=== PATIENT | female | born 1945 | race Caucasian/White ===

== ENCOUNTER → 2016-06-05 | Outpatient (REF) ==
[~2016-06-05] MED LIST: ALDACTONE50 MG PO; CALCIUM CITRATE1 TA1 PO; CLARITIN REDITA10 MG PO; COMBIVENT INH14.7 GM IH; FOSAMAX 70MG TA70 MG PO; GLUCOPHAGE1000 MG PO; GLUCOSAMINE & C1 CA1 PO; LIDODERM PATCH TP; MICARDIS20 MG PO; MICARDIS40 MG PO; MULTIPLE VITAMI1 CAP PO; NASACORT AQ N16.5 GM NS; NIZORAL SHAMPO120 M1 TP; OMEGA-3 FISH1200 MG PO; PREGNENOLONE; PREGNENOLONE PO; PRIL40 PO; PROBIOTIC FORMU1 CAP PO; SYNTHROID0.05 MG/TA PO; TOBRADEX EYE O3.5 GM OP; TYLENOL EXTRA500 M1 PO; VYTORIN 10 MG-21 TAB PO; XOPENEX 0.0.63 MG/3 IH; ZYRTEC 10MG10 MG PO
[2016-06-05 12:47] LABS: THYROID STIMULATING HORMONE 2.21 uIU/mL (0.465-4.680)
== END ==
LOC: ZLAB.WCH 11:24
PROVIDERS: Family Medicine
DX: Z01.89 Encounter for other specified special examinations (principal)

== ENCOUNTER → 2016-12-01 | Outpatient (REF) | LOC: ZLAB.WCH 18:00 | DX: Z01.89 Encounter for other specified special examinations (principal) ==

== ENCOUNTER → 2017-01-19 | Outpatient (CLI) | payer MEDICARE, OTHER | LOC: COL.RAD 07:01 | DX: K21.0 Gastro-esophageal reflux disease with esophagitis (principal); K63.89 Other specified diseases of intestine | CPT/HCPCS: A9541 ==

== ENCOUNTER 2017-04-20 10:30 | Outpatient (RCR) | payer MEDICARE, OTHER | END 2017-06-14 | disposition still patient (30) | LOC: WSST | DX: R49.0 Dysphonia (principal); J38.3 Other diseases of vocal cords | CPT/HCPCS: G9171-GN; G9172-GN ==

== ENCOUNTER → 2017-06-04 | Outpatient (REF) ==
[2017-06-04 16:34] LABS: THYROID STIMULATING HORMONE 1.88 uIU/mL (0.465-4.680)
== END ==
LOC: ZLAB.WCH 15:40
PROVIDERS: Family Medicine
DX: Z01.89 Encounter for other specified special examinations (principal)

== ENCOUNTER → 2017-12-22 | Outpatient (REF) | LOC: ZLAB.WCH 18:07 | DX: Z01.89 Encounter for other specified special examinations (principal) ==

== ENCOUNTER 2019-10-23 09:01 | Day surgery (SDC) | payer MEDICARE, OTHER ==
[~2019-10-23] VITALS: Ht 165.1 cm; Wt 82.0 kg
[2019-10-23] MEDS ORDERED: PRIL40 PO (09:35)
[2019-10-23] MEDS ORDERED: ALDACTONE 25MG25 M1 PO (09:36)
[2019-10-23] MEDS ORDERED: MICARDIS80 MG PO (09:36)
[2019-10-23] MEDS ORDERED: GLUCOPHAGE500 MG/TAB PO (09:36)
[2019-10-23] MEDS ORDERED: SYNTHROID0.05 MG/TA PO (09:37)
[2019-10-23] MEDS ORDERED: CALCIUM 600MG+D1 TAB PO (09:37)
[2019-10-23] MEDS ORDERED: DETROL LA 2 MG2 MG PO (09:38)
[2019-10-23] MEDS ORDERED: LIPITOR 10MG10 MG PO (09:38)
[2019-10-23] MEDS ORDERED: ALLEGRA 180MG180 MG PO (09:38)
[2019-10-23] MEDS ORDERED: CEROVITE SENIOR1 TA1 PO (09:39)
[2019-10-23] MEDS ORDERED: COMBIRESP IH (09:39)
[2019-10-23] MEDS ORDERED: ENSURE 237 ML237 ML PO (09:40)
[2019-10-23] MEDS ORDERED: PROBIOTIC FORMU1 CAP PO (09:40)
[2019-10-23] MEDS ORDERED: FIBERCON PO (09:40)
[2019-10-23] MEDS ORDERED: VITAMIN B122500 MCG SL (09:40)
[2019-10-23] MEDS ORDERED: DULCOLAX STOOL100 MG PO (09:41)
[2019-10-23] MEDS ORDERED: GLUCOSAMINE & C1 TAB PO (09:41)
[2019-10-23] MEDS ORDERED: AZO-CRANBERRY450 MG PO (09:42)
[2019-10-23] MEDS ORDERED: NASACORT OTC NS (09:42)
[2019-10-23] MEDS ORDERED: CORICIDIN HBP1 EACH PO (09:43)
[2019-10-23] MEDS ORDERED: LASIX 20MG TABL20 MG PO (09:43)
[2019-10-23] MEDS ORDERED: MUCINEX D 12001 TER PO (09:43)
[2019-10-23 09:44] VITALS: BP 136/78; PULSE 90; TEMP 97.2
[2019-10-23] MEDS ORDERED: PAMELOR 10MG10 MG PO (09:44)
[2019-10-23] MEDS ORDERED: XARELTO10 MG PO (09:44)
--- NOTE | 2019-10-23 10:19 | NUR ---
Patient to the procedure at this time with Junie Ayala RN.
[2019-10-23 10:30] VITALS: BP 125/79; PULSE 87
[2019-10-23 10:45] VITALS: BP 131/83; PULSE 69
[2019-10-23 11:10] VITALS: BP 139/81; PULSE 82; TEMP 97
--- NOTE | 2019-10-23 11:10 | NUR ---
Patient arrives back to [facility] alert, denies pain or nausea. Patient ambulates from cart to chair with standby assist and without any complications. Patient monitor applied, vitals stable. Patient's spouse at bedside.
--- NOTE | 2019-10-23 11:30 | NUR ---
Dr Montoya into see patient at this time to go over procedure results.
--- NOTE | 2019-10-23 11:40 | NUR ---
Patient tolerates juice and crackers without any nausea.
--- NOTE | 2019-10-23 11:55 | NUR ---
Dismissal instructions gone over with patient and patient's spouse. Both verbalize understanding and all questions answered.
--- NOTE | 2019-10-23 12:00 | NUR ---
Patient up to restroom at this time with wheelwalker and without any complications.
--- NOTE | 2019-10-23 12:05 | NUR ---
Patient discharged to private vehicle at patient enterance via wheelchair without any complications. Patient and spouse leave thanking staff for services.
== END 2019-10-23 12:05 | disposition home or self-care (01) ==
LOC: SDCO 09:01
DX: K22.2 Esophageal obstruction (principal); K21.9 Gastro-esophageal reflux disease without esophagitis; Z88.1 Allergy status to other antibiotic agents; Z88.5 Allergy status to narcotic agent; J45.909 Unspecified asthma, uncomplicated; I10 Essential (primary) hypertension; E66.9 Obesity, unspecified; G47.33 Obstructive sleep apnea (adult) (pediatric); G89.29 Other chronic pain; Z86.73 Personal history of transient ischemic attack (TIA), and cerebral infarction without residual deficits; E11.9 Type 2 diabetes mellitus without complications; Z88.2 Allergy status to sulfonamides; Z79.84 Long term (current) use of oral hypoglycemic drugs; Z90.49 Acquired absence of other specified parts of digestive tract; Z90.710 Acquired absence of both cervix and uterus; Z96.649 Presence of unspecified artificial hip joint; Z20.828 Contact with and (suspected) exposure to other viral communicable diseases
CPT/HCPCS: C1726; J2704; J7030

== ENCOUNTER → 2019-12-15 | Outpatient (CLI) | payer MEDICARE, OTHER ==
[~2019-12-15] MED LIST changes: +ALDACTONE 25MG25 M1 PO; +ALLEGRA 180MG180 MG PO; +AZO-CRANBERRY450 MG PO; +CALCIUM 600MG+D1 TAB PO; +CEROVITE SENIOR1 TA1 PO; +COMBIRESP IH; +CORICIDIN HBP1 EACH PO; +DETROL LA 2 MG2 MG PO; +DULCOLAX STOOL100 MG PO; +ENSURE 237 ML237 ML PO; +FIBERCON PO; +GLUCOPHAGE500 MG/TAB PO; +GLUCOSAMINE & C1 TAB PO; +LASIX 20MG TABL20 MG PO; +LIPITOR 10MG10 MG PO; +MICARDIS80 MG PO; +MUCINEX D 12001 TER PO; +NASACORT OTC NS; +PAMELOR 10MG10 MG PO; +VITAMIN B122500 MCG SL; +XARELTO10 MG PO
== END ==
LOC: ZCOL.LAB 21:44
DX: Z01.89 Encounter for other specified special examinations (principal)

== ENCOUNTER 2022-01-02 14:18 | Day surgery (SDC) | payer MEDICARE, OTHER ==
[~2022-01-02] VITALS: Ht 165.1 cm; Wt 81.1 kg
[2022-01-02 15:46] VITALS: BP 174/79; PULSE 83; TEMP 97.1
[2022-01-02 16:12] VITALS: BP 157/98; PULSE 76; TEMP 97.2
[2022-01-02 16:27] VITALS: BP 164/87; PULSE 76
[2022-01-02 16:42] VITALS: BP 164/89; PULSE 74
--- NOTE | 2022-01-02 16:45 | NUR ---
1612 RETURNS TO ROOM 6. AMBULATES TO RECLINER FROM CART. AWAKE, ALERT. MONITORS ON, VITAL SIGNS OBTAINED. DENIES ABD PAIN, NAUSEA OR DYSPHAGIA. HERE. CALL LIGHT AT SIDE. 1618 DR. MCGOWAN HERE TO VISTI WITH PATIENT. 1625 TOLERATES [O JUICE WITHOUT NAUSEA. SWALLOWS WITHOUT DIFFICULTY. 1640 DRESSES SELF/
== END 2022-01-02 16:45 | disposition home or self-care (01) ==
LOC: SDCO 14:18
DX: K22.2 Esophageal obstruction (principal); K21.9 Gastro-esophageal reflux disease without esophagitis; D13.2 Benign neoplasm of duodenum
CPT/HCPCS: C1726; J2704; J7120